=== PATIENT | male | born 1995 | race Caucasian/White ===

== ENCOUNTER 2021-08-15 21:05 | Emergency (ER) | payer OTHER, SELFPAY ==
[2021-08-15 21:13] VITALS: BP 130/63; PULSE 83; RESP 16; TEMP 36.8; O2SAT 95; BMI 25.0
--- NOTE | 2021-08-15 21:13 | ED_ITS ---
HPI - Extremity Injury (Upper) General Chief Complaint: Extremity Injury, Upper Stated Complaint: rt wrist hurt at work Time Seen by Provider: 08/15/21 21:09 History of Present Illness HPI narrative: 25-year-old male nonsmoker with noncontributory medical history presents for evaluation of a right hand injury suffered just prior to arrival while at work. 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 He was turning a large bowel with both hands which is approximately 8 in a crossed when his right hand slipped and slammed into the corner of a welded metal structure. He very quickly had numbness, tingling and pins and needle sensation in his right 3rd, 4th and 5th fingers which radiated up to his elbow. Over the course of the next 30-60 minutes he had a significant improvement in the symptoms and was nearly at baseline by his arrival here. He now has full but slightly painful range of motion of the right wrist and has no complaints of the elbow or shoulder. He is otherwise well and free of complaint and denies any history of the same Patient History Social History Smoking Status: Never smoker Exam Narrative Exam Narrative: GEN: AOx3 and in mild distress EYES: Pupils are equal, round, and reactive to light and accommodation. Extraoccular muscles are intact bilaterally. There is no subconjunctival hemorrhage or exudate. CHEST: Lungs are clear to auscultation bilaterally and free of wheezes, rales, or rhonchi. Heart rate is regular rhythm, there are no murmurs, clicks, rubs, or gallops. There is no chest wall tenderness. ABD: Abdomen is soft and nontender. There is no guarding or rebound. Bowel sounds are normal in all 4 quadrants. There is no mass or organomegaly. EXT: Patient has mild tenderness to palpation overlying the ulnar styloid, this is closed, isolated and neurovascularly intact. He has full range of motion, strength and sensation of his fingers, cap refills less than 2 seconds of his SKIN: Warm, pink, and dry. No erythema or rash Initial Vital Signs Initial Vital Signs: Vital Signs Temperature 98.3 F 08/15/21 21:13 Pulse Rate 83 08/15/21 21:13 Respiratory Rate 16 08/15/21 21:13 Blood Pressure 130/63 08/15/21 21:13 Pulse Oximetry 95 08/15/21 21:13 Procedures Orthopedic Splinting/Casting Injury #1: Side: right Upper Extremity Injury Location: wrist Upper Extremity Immobilizer: volar splint Post splinting neuro exam: no change Post splinting vascular exam: intact Placed by: Nursing Course Orders Ordered: ED Orders 08/15/21 21:17 XR wrist RT min 3V Stat Vital Signs Vital signs: Vital Signs - 8 hr 08/15/21 21:13 Temperature 98.3 F Pulse Rate 83 Respiratory Rate 16 Blood Pressure 130/63 Pulse Oximetry 95 MDM - Extremity Injury (Upper) Imaging Data Extremity x-ray #1: Radiologist's Impression: Reji Dyer??25??M??1995 ? Allergy/Adv: Not Recorded Close Wrist X-Ray (Signed) Rebeka Fontanez - 08/15/21 [place] [address] XRay Report Signed Patient: Reji Dyer MR#: [id number] : 1995 Acct:[id number] Age/Sex: 25 / M Date of Service: 08/15/21 Loc: ED Accession Number: [id number] ?? Procedure: XR wrist RT min 3V Ordering Provider: Collin Watters D.O. PROCEDURE:? XR WRIST RT MIN 3V ? INDICATIONS: ambulatory ? TECHNIQUE:? 3 views of the wrist were acquired.? ? COMPARISON:? None. ? FINDINGS:? ? Bones:? No fractures or dislocations.? No suspicious bony lesions.? ? Scaphoid view:? Negative ? Soft tissues:? No suspicious soft tissue calcifications.? ? IMPRESSION:? No acute fracture. No osseous lesion. If symptoms and/or clinical suspicion for pathology persist, further assessment with repeat, or advanced imaging (e.g., CT, MRI, or bone scan) may be helpful for further assessment. ? ? Dictated by: Rebeka Fontanez M.D. on 08/15/2021 at 21:46 ? ? Approved by: Rebeka Fontanez M.D. on 08/15/2021 at 21:46 ? [facility] Narrative Medical decision making narrative: Patient with numbness, tingling and pain after a work related right wrist injury in which he struck his wrist on a welded metal structure. His symptoms had nearly resolved prior to his arrival and exam here is quite reassuring. He has full strength and range of motion, neurovascularly he is intact. He states on occasion he feels some tingling still in the fingers as mention. X-ray is reassuring and demonstrates no frac ture or dislocation. This is most likely a temporary distal ulnar nerve palsy related to trauma and all signs point towards this just being temporary with expected improvement over the next few days. He was given return precautions and questions have been answered to his apparent satisfaction Discharge Plan Departure Patient Disposition: Home Clinical Impression: Ulnar nerve palsy of right upper extremity Instructions: DI for Numbness/Tingling Activity Restrictions/Additional Instructions: *You have been diagnosed with [numbness, tingling and pain in your right hand likely a consequence of a traumatic and improving ulnar nerve palsy. Symptoms have already improved significantly, I would expect with the use of the provided splint and anti-inflammatories your symptoms to improve over the next few days. *What to do: *Please consider the use of [id number] anti-inflammatory such as Naprosyn or Motrin to help with pain and inflammation *Please follow up with your primary care provider in 2-3 days, call for an appointment. Let them know you were seen in the Emergency Department and that we ask that you be seen in follow up. We will electronically transmit a record of today's note if your PCP is in our system *If you do not have a primary care provider please contact the [facility] Resource line at [phone]. They will ask some questions about your medical history and help get you set up with a doctor in the community. * as we discussed, I will given the contact information for Dr. Malcolm at [facility] in the event your symptoms do not improve over the next few days *Return to Emergency Department if you should have any new, worsening or concerning symptoms Radiographic study has been interpreted by an emergency physician. The official diagnosis by radiology will be performed within the next 24 hours and should there be any change in outcome we will notify you of how to proceed. Referrals: Mauricio Malcolm MD [Physician] -
--- NOTE | 2021-08-15 21:17 | DI.RAD.S_ITS ---
PROCEDURE: XR WRIST RT MIN 3V INDICATIONS: ambulatory TECHNIQUE: 3 views of the wrist were acquired. COMPARISON: None. FINDINGS: Bones: No fractures or dislocations. No suspicious bony lesions. Scaphoid view: Negative Soft tissues: No suspicious soft tissue calcifications. IMPRESSION: No acute fracture. No osseous lesion. If symptoms and/or clinical suspicion for pathology persist, further assessment with repeat, or advanced imaging (e.g., CT, MRI, or bone scan) may be helpful for further assessment. Dictated by: Rebeka Fontanez M.D. on 08/15/2021 at 21:46 Approved by: Rebeka Fontanez M.D. on 08/15/2021 at 21:46
== END 2021-08-15 22:00 | disposition home or self-care (01) ==
PROVIDERS: Emergency Provider Emergency Medicine
DX: G56.21 Lesion of ulnar nerve, right upper limb (principal)
CPT/HCPCS: 73110; 99283